=== PATIENT | female | born 1995 | race Native Hawaiian/Other Pacific Islander ===

== ENCOUNTER 2023-05-02 19:58 | Emergency (ER) | payer MEDICAID ==
[2023-05-02 20:35] LABS: BASOPHILS # (AUTO) 0.1 10^3/uL (0.0-0.1); BASOPHILS % (AUTO) 0.8 %; EOSINOPHILS # (AUTO) 0.1 10^3/uL (0.0-0.7); HCT - HEMATOCRIT 35.9 % (37.0-47.0); HGB - HEMOGLOBIN 11.9 g/dL (12.0-16.0); LYMPHOCYTES # (AUTO) 1.2 10^3/uL (1.5-3.5); MEAN CORPUSCULAR HGB CONC 33.1 g/dL (32.0-36.0); MEAN CORPUSCULAR VOLUME 87.3 fL (81.0-99.0); MEAN PLATELET VOLUME 9.4 fL (7.9-10.8); MONOCYTES # (AUTO) 0.5 10^3/uL (0.0-1.0); MONOCYTES % (AUTO) 5.8 %; NEUTROPHILS # (AUTO) 6.1 10^3/uL (1.5-6.6); NEUTROPHILS % (AUTO) 76.8 %; PLT - PLATELET COUNT 326 10^3/uL (130-450); RED BLOOD COUNT 4.11 10^6/uL (4.20-5.40); RED CELL DISTRIBUTION WIDTH 13.2 % (12.0-15.0); WHITE BLOOD COUNT 7.9 x10^3/uL (4.8-10.8)
[2023-05-02 20:49] LABS: ALBUMIN 3.9 g/dL (3.2-5.5); ALBUMIN/GLOBULIN RATIO 1.3 (1.0-2.2); BILIRUBIN,TOTAL 0.4 mg/dL (0.2-1.0); CALCIUM 9.2 mg/dL (8.5-10.3); CREATININE 0.5 mg/dL (0.6-1.3); POTASSIUM 3.8 mmol/L (3.5-4.5); TOTAL PROTEIN 6.8 g/dL (6.4-8.9)
--- NOTE | 2023-05-02 21:31 | ED Physician Documentation ---
PD HPI ABD PAIN - Stated complaint Stated Complaint: ABD PX - Chief complaint Chief Complaint: Abd Pain - History obtained from History obtained from: Patient - Additional information Additional information: The patient comes to the emergency department chief complaint of left pelvic lower quadrant abdominal pain that started around 1730 this evening. She states the most intense part of the pain was the initial pain and it lasted only several seconds. She states she then had a lingering, much lesser pain that persisted for couple of hours afterward. She states she is 17 weeks and she also has a left ovarian cyst that she is scheduled to have removed this week. She states her main concern is whether or not she might had a torsion. The patient states she is not quite feeling her baby move yet, But that she has had no issues with her . She has not noticed any fluid or blood from her vagina. No dysuria. No back pain. She is not having much nausea anymore. No other complaints at this time. PD PAST MEDICAL HISTORY - Allergies Allergies/Adverse Reactions: Allergies Allergy/AdvReac Type Severity Reaction Status Date / Time No Known Drug Allergies Allergy Verified 05/02/23 20:01 PD ED PE NORMAL - Vitals Vital signs reviewed: Yes - General General: Alert and oriented X 3, No acute distress, Other (Very thin female, no apparent distress.) - HEENT HEENT: Atraumatic, PERRL, EOMI, Moist mucous membranes - Neck Neck: Supple, no meningeal sign - Cardiac Cardiac: RRR, No murmur, Strong equal pulses - Respiratory Respiratory: No respiratory distress, Clear bilaterally - Abdomen Abdomen: Soft, Other (Left lower quadrant tenderness, no rebound or guarding. Gravid abdomen) - Derm Derm: Normal color, Warm and dry, No rash - Extremities Extremities: No deformity, No edema - Neuro Neuro: Alert and oriented X 3 - Psych Psych: Normal mood, Normal affect Results - Vitals Vitals: Vital Signs - 24 hr 05/02/23 05/02/23 05/02/23 20:01 21:44 22:58 Temperature 36.8 C Heart Rate 78 74 74 Respiratory 18 18 18 Rate Blood Pressure 112/60 108/69 108/67 O2 Saturation 99 98 98 Oxygen O2 Source Room air - Labs Labs: Laboratory Tests 05/02/23 05/02/23 20:23 20:23 WBC 7.9 RBC 4.11 L Hgb 11.9 L Hct 35.9 L MCV 87.3 MCH 29.0 MCHC 33.1 RDW 13.2 Plt Count 326 MPV 9.4 Neut # (Auto) 6.1 Lymph # (Auto) 1.2 L Wilkin # (Auto) 0.5 Eos # (Auto) 0.1 Baso # (Auto) 0.1 Absolute Nucleated RBC 0.00 Nucleated RBC % 0.0 Sodium 135 Potassium 3.8 Chloride 104 Carbon Dioxide 24 Anion Gap 7.0 BUN 8 Creatinine 0.5 L Estimated GFR (MDRD) 150 Glucose 135 H Calcium 9.2 Total Bilirubin 0.4 AST 16 ALT 16 Alkaline Phosphatase 48 Total Protein 6.8 Albumin 3.9 Globulin 2.9 Albumin/Globulin Ratio 1.3 Lipase 52 - Rads (name of study) OB ultrasound/pelvic ultrasound Relevant Findings:: Final report received, See rad report (Left ovarian cyst redemonstrated without torsion, good flow noted. Fetus with good heartbeat. Placental lie normal.) PD Medical Decision Making - ED course Complexity details: reviewed results, re-evaluated patient, considered differential, d/w patient ED course: The patient was worked up with labs which were unremarkable. Ultrasound was also ordered to evaluate both the patient's and her pain, And this was unremarkable. I felt the patient was stable for discharge home. She did request something for pain and was given a small dose of analgesia parenterally. I have encouraged her to follow-up with her [facility] for further care and for definitive management of her cyst. We have discussed the usual indications for return. Departure - Departure Disposition: 01 Home, Self Care Clinical Impression: Second trimester Ovarian cyst Qualifiers: Laterality: left Qualified Code(s): N83.202 - Unspecified ovarian cyst, left side Condition: Stable Instructions: Preg 2nd Trimester, ED Cyst Ovarian Comments: Your ultrasound shows that your cyst is a little bigger but there is no evidence of torsion. Additionally, your baby looks good and otherwise, there is no concerning finding on the ultrasound. Most likely your cyst is causing the pain, along with the pressure the growing uterus is exerting on it. The movement of the baby may also be causing some escalations of the pain as well. At this point, you will need to follow-up as planned with your [facility] team regarding both your and your cyst. Forms: PCP List Discharge Date/Time: 05/02/23 22:58
[2023-05-02 21:48] VITALS: O2SAT 98
[2023-05-02] MEDS ORDERED: HYDROmorphone 0.5 MG/0.5 ML SYRINGE IVP STA (22:25)
[2023-05-02] MEDS ORDERED: HYDROmorphone 0.5 MG/0.5 ML SYRINGE IM STA (22:44)
[2023-05-02 23:02] VITALS: BP 108/67
--- NOTE | 2023-05-03 00:08 | Ultrasound Report ---
PROCEDURE: OB Limited INDICATIONS: LLQ/pelvic pain/ov cyst OUTSIDE/PRIOR DATING DATA: Last menstrual period (LMP): 12/13/2022. LMP-based estimated date of delivery (MARCELO): 10/20/2023. First dating scan (date and location): 03/02/2023, outside institution. Estimated date of delivery (MARCELO) from first dating scan: 10/12/2023. TECHNIQUE: Real-time scanning was performed of the fetus, with image documentation. Endovaginal scanning: Not performed COMPARISON: None. FINDINGS: A single living intrauterine gestation is present. Presentation: Vertex Placenta: Placental position is anterior. Placental edge is not evaluated Amniotic fluid index: Not evaluated heart rate: 143 beats per minutes. Maternal cervical canal: Closed, not measured Estimated gestational age from initial scan: 16 weeks 5 days Large complex left ovarian cyst 14.1 x 8.9 x 13.0 cm. Appearance of peripheral soft tissue nodularity and thin septations. Blood flow visualized within left ovarian parenchyma by Doppler imaging IMPRESSION: 1. Single living intrauterine . 2. Large complex left ovarian cyst measuring up to 14.1 cm, indeterminate. Correlation with outside barbara lucero recommended gynecology consultation may be helpful to direct further management Reviewed by: Holger Patel MD on 05/03/2023 12:07 AM PDT Approved by: Holger Patel MD on 05/03/2023 12:07 AM PDT Station ID: [id number]
== END 2023-05-02 22:58 | disposition home or self-care (01) ==
LOC: ED 19:58
DX: O34.82 Maternal care for other abnormalities of pelvic organs, second trimester (principal); N83.202 Unspecified ovarian cyst, left side; Z3A.16 16 weeks gestation of pregnancy
CPT/HCPCS: 36415; 76815; 80053; 83690; 85025; 96372; 99283; 99284; J1170